=== PATIENT | female | born 1960 | race Caucasian/White ===

== ENCOUNTER 2019-08-11 19:31 | Emergency (ER) | payer OTHER ==
[~2019-08-11] VITALS: Ht 165.1 cm; Wt 74.8 kg
[2019-08-11 19:41] VITALS: BP 189/91
--- NOTE | 2019-08-11 20:19 | NUR ---
58 Y/O FEMALE PRESENTS TO ED, C/O COUGHING X1 WEEK. PT STATES COUGH CONTAINS CLEAR SPUTUM. C/O OF PAIN 8/10 AND FEVER. TOOK NYQUIL YESTERDAY. PT LUNG SOUNDS CLEAR. NO SIGNS OF RESPIRATORY DISTRESS/SOB. PT VSS. ERMD AWARE. WILL CONTINUE TO MONITOR.
--- NOTE | 2019-08-11 20:27 | NUR ---
Dr. Santana examining patient.
--- NOTE | 2019-08-11 20:34 | NUR ---
X-Ray at bedside.
--- NOTE | 2019-08-11 20:34 | NUR ---
Theo rothman in ED - 08/11/19 at [address] Santana examining patient.
[2019-08-11] MEDS ORDERED: AZITHROMYCIN 250 MG TAB PO ONE (21:10)
[2019-08-11 21:19] VITALS: BP 168/90
--- NOTE | 2019-08-11 21:19 | NUR ---
PT DISCHARGED WITH PAPERWORK. RX ALBUTEROL, TESSALON, AZITHROMYCIN. EDUCATED PT REGARDING MEDICATIONS AND S/E. EDUCATED PT REGARDING D/C INSTRUCTIONS AND DIAGNOSIS. PT VERBALIZED UNDERSTANDING OF TEACHING. TOLD PT TO FOLLOW UP WITH PCP AND WHEN TO RETURN TO ED. PT VSS. NO FEVER. ALL QUESTIONS ANSWERED.
== END 2019-08-11 21:19 | disposition home or self-care (01) ==
LOC: MED 19:31
DX: J98.01 Acute bronchospasm (principal); Z87.891 Personal history of nicotine dependence; Z88.0 Allergy status to penicillin; Z88.5 Allergy status to narcotic agent
CPT/HCPCS: 71045; 99283; Q0092